=== PATIENT | female | born 1930 | race African-American/Black ===

== ENCOUNTER 2018-07-01 14:35 | Emergency (ER) | payer MEDICARE ==
[~2018-07-01] VITALS: Ht 160 cm; Wt 102.5 kg
[2018-07-01] MEDS ORDERED: HYDRALAZINE HCL 20 MG/ML VIAL IV ONE (15:30)
--- NOTE | 2018-07-01 16:43 | Diagnostic Imaging Report ---
CT BRAIN -[facility] HISTORY: High blood pressure, headache COMPARISON: None. Technique: Noncontrast axial scans were obtained from skull base to the vertex. Coronal and sagittal reconstructions obtained from the axial data. One or more of the following dose reduction techniques were used: Automated exposure control, adjustment of the mA and/or kV according to patient size, and/or utilization of iterative reconstruction technique. DISCUSSION: Scalp/Skull: Unremarkable. Brain sulci: Mildly prominent. Ventricles: Compensatory dilatation. Extra-axial spaces: No masses or fluid collections. Carotid siphon and intradural vertebral artery calcifications are present. Parenchyma: Moderate bilateral deep white matter hypodensity is likely chronic microvascular ischemic change. Otherwise, no masses, hemorrhage, or large vascular territory acute infarct. Dural sinuses: No abnormal densities. Sellar/Suprasellar region: Intact. Skull base: Intact. Incidental findings: None. IMPRESSION: 1. No acute intracranial abnormalities. 2. Moderate supratentorial chronic microvascular ischemic change. Mild generalized cerebral volume loss. Signed by: Dr. Francisco Simental M.D. on 07/01/2018 4:40 PM
[2018-07-01 17:51] VITALS: BP 164/68
== END 2018-07-01 17:58 | disposition home or self-care (01) ==
LOC: FSED 14:35
DX: R51 Headache (principal); I10 Essential (primary) hypertension; E78.00 Pure hypercholesterolemia, unspecified
CPT/HCPCS: 70450; 80053; 84484; 85025; 99284; J0360

== ENCOUNTER 2018-07-11 04:20 | Emergency (ER) | payer MEDICARE, OTHER ==
[~2018-07-11] VITALS: Ht 160 cm; Wt 102.5 kg
--- OUTSIDE RECORDS SUMMARY | 2018-07-11 04:23 | XMS REPORT ---
Author [facility] Address Unknown Phone Unavailable Care Team Providers Care Sales Product Manager Name Role Phone Arielle KEEN Unavailable Unavailable Problems This patient has no known problems. Allergies, Adverse Reactions, Alerts This patient has no known allergies or adverse reactions. Medications This patient has no known medications. Results Test Description Test Time Test Comments Text Results Atomic Results Result Comments CT BRAIN WO-HOPD 2018-07-01 16:38:00 [place] [address] Patient Name: DREW LOGAN MR #: [id number] : 1930 Age/Sex: 88/F Req #: [id number] Adm Physician: Ordered by: YVETTE KEEN MD Report #: [id number] Location: [facility] Room/Bed: Procedure: [id number] HOPD/CT BRAIN WO-HOPD Exam Date: 07/01/18 Exam Time: 1633 REPORT STATUS: Signed CT BRAIN WO-HOPD HISTORY: High blood pressure, headache COMPARISON: None. Technique: Noncontrast axial scans were obtained from skull base to the vertex. Coronal and sagittal reconstructions obtained from the axial data. One or more of the following dose reduction techniques were used: Automated exposure control, adjustment of the mA and/or kV according to patient size, and/or utilization of iterative reconstruction technique. DISCUSSION: Scalp/Skull: Unremarkable. Brain sulci: Mildly prominent. Ventricles: Compensatory dilatation. Extra-axial spaces: No masses or fluid collections. Carotid siphon and intradural vertebral artery calcifications are present. Parenchyma: Moderate bilateral deep white matter hypodensity is likely chronic microvascular ischemic change. Otherwise, no masses, hemorrhage, or large vascular territory acute infarct. Dural sinuses: No abnormal densities. Sellar/Suprasellar region: Intact. Skull base: Intact. Incidental findings: None. IMPRESSION: 1. No acute intracranial abnormalities. 2. Moderate supratentorial chronic microvascular ischemic change. Mild generalized cerebral volume loss. Signed by: Dr. Francisco Giraldo M.D. on 07/01/2018 4:40 PM Dictated By: FRANCISCO GIRALDO MD [id number] Transcribed By: MADIHA on 07/01/18 1640 COPY TO: YVETTE KEEN MD
--- OUTSIDE RECORDS SUMMARY | 2018-07-11 04:23 | XMS REPORT | Clinical Summary ---
Author Author [facility] [employer] [facility] [employer] Address Unknown Phone Unavailable Care Team Providers Care Pipe Line Walker Name Role Phone Bart Al MD PCP Allergies No Known Allergies Medications End Date Status Medication Sig Dispensed Refills Start Date Active ONETOUCH VERIO strip test 0 strips 8 Active ONETOUCH VERIO MID 0 CONTROL solution 8 Active clonIDINE HCl (CATAPRES) TK 1 T PO TID 0 0.3 MG tablet 8 Active ONETOUCH DELICA LANCETS 0 33 gauge misc 8 Active sitaGLIPtin-metformin Janumet 50 0 (JANUMET) 50-1,000 mg per mg-1,000 mg tablet tablet Active lisinopril-hydrochlorothi TK 1 T PO BID 0 azide 8 (PRINZIDE,ZESTORETIC) 20-25 mg per tablet Active metoprolol tartrate TK 1 T PO BID 3 (LOPRESSOR) 50 mg tablet WF 8 Active simvastatin (ZOCOR) 20 MG TK 1 T PO QD 0 tablet HS 8 Active aspirin (ECOTRIN) 81 MG Take 81 mg by 0 enteric coated tablet mouth daily. Active cholecalciferol, vitamin Take 1,000 0 D3, (VITAMIN D3) 1,000 Units by unit tablet mouth daily. Active omega-3/dha/epa/dpa/fish Take by 0 oil (OMEGA-3 2100 ORAL) mouth. Active Problems Not on file Encounters Care Team Description Date Type Specialty Abhinav Barriga MD Ear pain, left (Primary Dx) 08/10/2017 Office Visit Otolaryngology after 07/10/2017 Family History Medical History Relation Name Comments Hypertension Father Hypertension Mother Relation Name Status Comments Father Mother Social History Date Tobacco Use Types Packs/Day Years Used Never Smoker Smokeless Tobacco: Never Used Alcohol Use Drinks/Week oz/Week Comments No Sex Assigned at Date Recorded Not on file Industry Job Start Date Occupation Not on file Not on file Not on file Travel End Travel History Travel Start No recent travel history available. Last Filed Vital Signs Time Taken Vital Sign Reading 08/10/2017 10:11 AM CDT Blood Pressure 177/81 08/10/2017 10:11 AM CDT Pulse 56 - Temperature - - Respiratory Rate - - Oxygen Saturation - - Inhaled Oxygen - Concentration 08/10/2017 10:11 AM CDT Weight 103 kg (226 lb) 08/10/2017 10:11 AM CDT Height 160 cm (5' 3") 08/10/2017 10:11 AM CDT Body Mass Index 40.03 Plan of Treatment Health Maintenance Due Date Last Done Comments SHINGLES VACCINES (#1) 02/11/1982 65+ PNEUMOCOCCAL VACCINE 02/11/1997 (1 of 2 - PCV13) PNEUMOCOCCAL 02/11/1997 POLYSACCHARIDE VACCINE AGE 65 AND OVER INFLUENZA VACCINE 09/29/2018 Results Not on fileafter 07/10/2017 Advance Directives Patient has advance care planning documents on file. For more information, carolyn ashley contact: Dougie Martinez [address] [place] [address]
[2018-07-11] MEDS ORDERED: HYDRALAZINE HCL 25 MG TAB PO ONE (04:30)
[2018-07-11] MEDS ORDERED: HYDRALAZINE HCL 25 MG TAB ONE (04:34)
[2018-07-11 06:03] VITALS: BP 185/91
== END 2018-07-11 06:09 | disposition home or self-care (01) ==
LOC: ER 04:20
DX: I10 Essential (primary) hypertension (principal); E11.9 Type 2 diabetes mellitus without complications; H26.9 Unspecified cataract
CPT/HCPCS: 93005; 99283

== ENCOUNTER 2018-07-13 09:09 | Emergency (ER) | payer MEDICARE, OTHER ==
[~2018-07-13] VITALS: Ht 160 cm; Wt 101.6 kg
--- OUTSIDE RECORDS SUMMARY | 2018-07-13 09:11 | XMS REPORT | Clinical Summary ---
Author Author [facility] [employer] Address Unknown Phone Unavailable Care Team Providers Care Supersonic Engineer Name Role Phone Bart Al MD PCP [...] (Primary Dx) 08/10/2017 Office Visit Otolaryngology after 07/12/2017 Family History Medical History Relation Name Comments [...] INFLUENZA VACCINE 09/29/2018 Results Not on fileafter 07/12/2017 Advance Directives Patient has advance care planning documents on file. For more information, carolyn ashley contact: Dougie Martinez [address] [facility] [address]
[2018-07-13] MEDS ORDERED: JANUMET 50-1,01 EACH (09:50)
[2018-07-13] MEDS ORDERED: DIOVAN160 MG PO (09:51)
[2018-07-13] MEDS ORDERED: HYDRALAZINE HCL50 MG (09:52)
[2018-07-13] MEDS ORDERED: CLONIDINE HCL0.3 MG PO (09:52)
[2018-07-13] MEDS ORDERED: LOPRESSOR25 MG PO (09:53)
[2018-07-13] MEDS ORDERED: ASPIRIN CHEW81 MG PO (09:53)
[2018-07-13 10:48] VITALS: BP 147/80
== END 2018-07-13 10:49 | disposition left against medical advice (07) ==
LOC: FSED 09:09
DX: I10 Essential (primary) hypertension (principal)
CPT/HCPCS: 80053; 84484; 85025

== ENCOUNTER 2018-11-11 05:40 | Emergency (ER) | payer OTHER ==
[~2018-11-11] VITALS: Ht 160 cm; Wt 101.6 kg
[~2018-11-11 05:40] MED LIST: ASPIRIN CHEW81 MG PO; CLONIDINE HCL0.3 MG PO; DIOVAN160 MG PO; HYDRALAZINE HCL50 MG; JANUMET 50-1,01 EACH; LOPRESSOR25 MG PO
--- OUTSIDE RECORDS SUMMARY | 2018-11-11 05:43 | XMS REPORT | Clinical Summary ---
Author Author [facility] Organization [facility] Address Unknown Phone Unavailable Care Team Providers Care Ingredient Mixer Name Role Phone Bart Al MD PCP [...] ORAL) mouth. Active Problems Not on file Family History Medical History Relation Name Comments Hypertension Father Hypertension Mother Relation Name Status Comments Father Mother Social History Date Tobacco Use Types Packs/Day Years Used Never Smoker Smokeless Tobacco: Never Used Drinks/Week oz/Week Comments Alcohol Use No Sex Assigned at Date Recorded Not on file Industry Job Start Date Occupation Not on file Not on file Not on file Travel End Travel History Travel Start No recent travel history available. Last Filed Vital Signs Not on file Plan of Treatment Health Maintenance Due Date Last Done Comments SHINGLES VACCINES (#1) 02/11/1982 65+ PNEUMOCOCCAL VACCINE 02/11/1997 (1 of 2 - PCV13) INFLUENZA VACCINE 09/29/2018 Results Not on fileafter 11/10/2017 Advance Directives For more information, please contact: [phone] Patient Hospitality Specialist Explanation Type Date Recorded Advance Directives, Living Will and Medical Power of Passenger Relations Representative
[2018-11-11] MEDS ORDERED: HYDRALAZINE HCL 25 MG TAB PO ONE (06:30)
[2018-11-11 06:50] VITALS: BP 154/71
== END 2018-11-11 07:00 | disposition home or self-care (01) ==
LOC: ER 05:40
DX: I10 Essential (primary) hypertension (principal); E78.5 Hyperlipidemia, unspecified; H26.9 Unspecified cataract
CPT/HCPCS: 93005; 99282